=== PATIENT | female | born 1960 | race American Indian/Alaskan Native ===

== ENCOUNTER 2017-01-12 23:54 | Emergency (ER) | payer BC ==
[2017-01-13 00:46] LABS: Hematocrit 34.9 % (30.3-42.9); Hemoglobin 11.1 gm/dl (10.1-14.3); Mean Corpuscular HGB Conc 32 % (30-34); Mean Corpuscular Volume 77 fl (79-97); Platelet Count 250 K/mm3 (140-440); Red Blood Count 4.53 M/mm3 (3.65-5.03); Red Cell Distribution Width 15.9 % (13.2-15.2)
[2017-01-13 00:52] LABS: Mean Corpuscular Hemoglobin 25 pg (28-32)
[2017-01-13 01:02] LABS: Anion Gap 16 mmol/L; BUN/Creatinine Ratio 28.57; Blood Urea Nitrogen 20 mg/dL (7-17); Calcium 9.6 mg/dL (8.4-10.2); Carbon Dioxide 30 mmol/L (22-30); Glucose 85 mg/dL (65-100); Sodium 143 mmol/L (137-145)
[2017-01-13 01:46] LABS: Basophils % (Manual) 0 % (0.0-1.8); Blastocytes % (Manual) 0 %
[2017-01-13 01:47] LABS: Anisocytosis 1+; Hypochromasia 1+; Stomatocytes Rare
[2017-01-13 01:49] LABS: Diff Status Complete; Platelet Estimate Consistent w Auto
[2017-01-13 03:08] LABS: Bacteria,Urine 1+ /HPF (Negative); Bilirubin,Urine NEG (Negative); Blood,Urine NEG (Negative); Ketones,Urine NEG (Negative); Leukocyte Esterase,Urine NEG (Negative); Mucus,Urine FEW /HPF; Nitrite,Urine NEG (Negative); Protein,Urine <15 mg/dL mg/dL (Negative); Urobilinogen,Urine < 2.0 mg/dL (<2.0)
--- NOTE | 2017-01-13 05:42 | Emergency Department Report ---
<MARINA WIGGINS - Last Filed: 01/13/17 07:07> - General Chief Complaint: Upper Respiratory Infection Stated Complaint: CHEST PAIN/LEG/BACK PAIN/COLD SX Time Seen by Provider: 01/13/17 05:37 Source: patient Mode of arrival: Ambulatory Limitations: No Limitations - History of Present Illness Initial Comments: 56-year-old -[place] female comes in for complaint of cough fever chest feels tight and congested with cough only. She also complains of right lower back pain that radiates down the leg times greater than a year. She reports she vomited last night no diarrhea no fever. He reports that she's been seen by her primary care provider for her right lower leg but has nothing been done. Patient requests a hip x-ray. MD Complaint: cough, rhinorrhea -: year(s) - Related Data Previous Rx's Medication Instructions Recorded Last Taken Type Benazepril/Hydrochlorothiazide 20 mg PO DAILY #30 tablet 06/10/15 01/14/16 Rx [Benazepril-Hctz 20-25 mg] 20 Gabapentin [Neurontin] 600 mg PO Q12HR capsule 06/10/15 01/14/16 Rx 600 Gabapentin [Neurontin] 600 mg PO Q12HR capsule 07/25/16 Unknown Rx Pantoprazole [Protonix TAB] 40 mg PO QDAY #30 tablet 07/25/16 Unknown Rx Sulfamethoxazole/Trimethoprim 1 each PO Q12HR #10 tablet 07/25/16 Unknown Rx [Bactrim DS TAB] traMADol [Ultram 50 MG tab] 50 mg PO Q6HR PRN #60 tablet 07/25/16 Unknown Rx Azithromycin [Zithromax TAB] 500 mg PO QDAY #5 tablet 01/13/17 Unknown Rx Cyclobenzaprine [Flexeril] 10 mg PO BID PRN #20 tablet 01/13/17 Unknown Rx predniSONE [Deltasone] 60 mg PO QDAY #15 tab 01/13/17 Unknown Rx traMADol [Ultram 50 MG tab] 50 mg PO Q4HR PRN #30 tablet 01/13/17 Unknown Rx Allergies Allergy/AdvReac Type Severity Reaction Status Date / Time amoxicillin trihydrate Allergy Shortness Verified 07/06/14 21:09 [From Amoxil] of Breath lisinopril Allergy Shortness Verified 07/06/14 21:09 of Breath naproxen Allergy Shortness Verified 07/06/14 21:09 of Breath ED Review of Systems ROS: Stated complaint: CHEST PAIN/LEG/BACK PAIN/COLD SX Other details as noted in HPI Constitutional: denies: chills, fever ENT: congestion Respiratory: cough Cardiovascular: chest pain (cough) Endocrine: no symptoms reported Gastrointestinal: denies: abdominal pain, nausea, diarrhea Genitourinary: denies: urgency, dysuria, discharge Musculoskeletal: denies: back pain, joint swelling, arthralgia Skin: denies: rash, lesions ED Past Medical Hx - Past Medical History Previous Medical History?: Yes Hx Hypertension: Yes Hx Heart Attack/AMI: No Hx Congestive Heart Failure: No Hx Diabetes: No Hx Liver Disease: Yes (cysts (2015)) Hx Renal Disease: No Hx Sickle Cell Disease: No Hx Arthritis: Yes Hx Seizures: No Hx Asthma: No Hx COPD: No Hx HIV: No Additional medical history: Cyst near heart, arthritis - Surgical History Past Surgical History?: Yes Additional Surgical History: Hysterectomy - Social History Smoking Status: Never Smoker Substance Use Type: Alcohol - Medications Home Medications: Home Medications Medication Instructions Recorded Confirmed Last Taken Type Benazepril/Hydrochlorothiazide 20 mg PO DAILY #30 tablet 06/10/15 07/22/1601/13 Rx [Benazepril-Hctz 20-25 mg] 20 Gabapentin [Neurontin] 600 mg PO Q12HR capsule 06/10/15 07/22/16 01/14/16 Rx 600 Gabapentin [Neurontin] 600 mg PO Q12HR capsule 07/25/16 Unknown Rx Pantoprazole [Protonix TAB] 40 mg PO QDAY #30 tablet 07/25/16 Unknown Rx Sulfamethoxazole/Trimethoprim 1 each PO Q12HR #10 tablet 07/25/16 Unknown Rx [Bactrim DS TAB] traMADol [Ultram 50 MG tab] 50 mg PO Q6HR PRN #60 tablet 07/25/16 Unknown Rx Azithromycin [Zithromax TAB] 500 mg PO QDAY #5 tablet 01/13/17 Unknown Rx Cyclobenzaprine [Flexeril] 10 mg PO BID PRN #20 tablet 01/13/17 Unknown Rx predniSONE [Deltasone] 60 mg PO QDAY #15 tab 01/13/17 Unknown Rx traMADol [Ultram 50 MG tab] 50 mg PO Q4HR PRN #30 tablet 01/13/17 Unknown Rx ED Physical Exam - General Limitations: No Limitations General appearance: alert, in no apparent distress - Head Head exam: Present: atraumatic, normocephalic - Eye Eye exam: Present: normal appearance - ENT ENT exam: Present: mucous membranes moist - Neck Neck exam: Present: normal inspection - Respiratory Respiratory exam: Present: normal lung sounds bilaterally. Absent: respiratory distress - Cardiovascular Cardiovascular Exam: Present: regular rate, normal rhythm. Absent: systolic murmur, diastolic murmur, rubs, gallop - GI/Abdominal GI/Abdominal exam: Present: soft, normal bowel sounds - Expanded Lower Extremity Exam Right Hip exam: Present: normal inspection, full ROM ( pain), tenderness Upper Leg exam: Present: normal inspection, full ROM Lower Leg exam: Present: normal inspection Ankle exam: Present: normal inspection Foot/Toe exam: Present: normal inspection - Back Exam Back exam: Present: normal inspection - Neurological Exam Neurological exam: Present: alert, oriented X3 - Psychiatric Psychiatric exam: Present: normal affect, normal mood ED Course Vital Signs 01/13/17 00:13 Temperature 98.3 F Pulse Rate 92 H Respiratory 20 Rate Blood Pressure 105/69 O2 Sat by Pulse 100 Oximetry ED Medical Decision Making - Lab Data Result diagrams: 01/13/17 00:28 01/13/17 00:28 - Medical Decision Making Patient's been evaluated by this provider fast track. Chest x-ray was ordered prior to examination. [place] was given for pain and discomfort. X-ray of the hip has been ordered pending reading. ERIC Sink will eval and discharge. Critical care attestation.: If time is entered above; I have spent that time in minutes in the direct care of this critically ill patient, excluding procedure time. ED Disposition Clinical Impression: Right-sided low back pain with sciatica, Bronchitis Disposition: DISCHARGED TO HOME OR SELFCARE Condition: Good Instructions: Acute Bronchitis (ED), Sciatica (ED), Lumbar Radiculopathy (ED) Prescriptions: Azithromycin [Zithromax TAB] 500 mg PO QDAY #5 tablet Cyclobenzaprine [Flexeril] 10 mg PO BID PRN #20 tablet PRN Reason: Muscle Spasm predniSONE [Deltasone] 60 mg PO QDAY #15 tab traMADol [Ultram 50 MG tab] 50 mg PO Q4HR PRN #30 tablet PRN Reason: Pain Referrals: PRIMARY CARE, [Primary Care Provider] - 3-5 Days <YESSENIA CAT - Last Filed: 01/13/17 07:39> ED Medical Decision Making - Lab Data Result diagrams: 01/13/17 00:28 01/13/17 00:28 - Radiology Data Radiology results: image reviewed interpreted by me: X-ray interpretation of hips reveals mild arthritic changes bilaterally. No acute pathology noted. - Medical Decision Making Taking over care from nurse practitioner Ilene. I reviewed x-ray results with patient and family in room. I advised patient that there is no acute pathology noted. I will start patient on short course of steroids, muscle relaxants, pain medication as well as antibiotics for upper respiratory infections. Patient is stable for discharge in and is agreement with treatment plan. I also gave patient referral to orthopedic for evaluation of back pain and leg radiculopathy for the past 4 months. ED Disposition Is pt being admited?: No Does the pt Need Aspirin: No Time of Disposition: 07:39
--- NOTE | 2017-01-13 07:21 | XRay Report ---
CHEST 2 VIEWS INDICATION: Chest tightness. COMPARISON: 01/14/2016 FINDINGS: PA and lateral chest radiographs demonstrate stable cardiomediastinal silhouette, clear lungs and multilevel thoracic spondylosis. CONCLUSION: No acute disease, stable. Thank you for the opportunity to participate in this patient's care.
[2017-01-13] MEDS ORDERED: NORCO 5/325 PO ONE (07:58)
[2017-01-13 08:12] VITALS: BP 132/77
--- NOTE | 2017-01-13 08:15 | XRay Report ---
RIGHT HIP TWO VIEWS: 01/12/17 23:54:00 CLINICAL: Right hip pain. FINDINGS: No fracture or dislocation.Mild osteoarthritis. The pelvic bones are intact. Mild osteoarthritis of the left hip. Phleboliths in pelvis. Normal soft tissues. IMPRESSION: Mild osteoarthritis.
== END 2017-01-13 08:11 | disposition home or self-care (01) ==
LOC: ED 23:54
DX: J40 Bronchitis, not specified as acute or chronic (principal); M54.41 Lumbago with sciatica, right side; I10 Essential (primary) hypertension
CPT/HCPCS: 36415; 71020; 80048; 81001; 85007; 85025; 93005; 93010; 99284

== ENCOUNTER 2020-12-03 16:43 | Emergency (ER) | payer SELFPAY ==
[2020-12-03 17:35] LABS: Basophils % (Auto) 0.3 % (0.0-1.8); Eosinophils # (Auto) 0.1 K/mm3 (0.0-0.4); Eosinophils % (Auto) 1.4 % (0.0-4.3); Hematocrit 34.7 % (30.3-42.9); Hemoglobin 11.4 gm/dl (10.1-14.3); Lymphocytes # (Auto) 3.4 K/mm3 (1.2-5.4); Lymphocytes % (Auto) 47.4 % (13.4-35.0); Mean Corpuscular HGB Conc 33 % (30-34); Mean Corpuscular Volume 78 fl (79-97); Monocytes # (Auto) 0.5 K/mm3 (0.0-0.8); Monocytes % (Auto) 7.4 % (0.0-7.3); Platelet Count 178 K/mm3 (140-440); Red Blood Count 4.46 M/mm3 (3.65-5.03)
[2020-12-03 18:05] LABS: Alanine Aminotransferase 9 units/L (7-56); BUN/Creatinine Ratio 18; Blood Urea Nitrogen 14 mg/dL (7-17); Calcium 8.8 mg/dL (8.4-10.2); Hemolysis Index 10
[2020-12-03 19:02] LABS: Bilirubin,Urine NEG (Negative); Blood,Urine NEG (Negative); Color,Urine Yellow (Yellow); Mucus,Urine 2+ /HPF; Protein,Urine <15 mg/dL mg/dL (Negative); Urobilinogen,Urine < 2.0 mg/dL (<2.0)
--- NOTE | 2020-12-03 19:04 | Emergency Department Report ---
Blank Doc - Documentation Documentation: This is a 60-year-old female with upper abdominal pain and nausea vomiting with flank pain and dysuria with urinary frequency. 1- This initial assessment/diagnostic orders/clinical plan/ treatment(s) is/are subject to change based on pt's health status, clinical progression and re- assessment by fellow clinical providers in the ED. Further treatment and workup at subsequent clinical provers discretion. Patient/guardians urged not to elope from ED as their condition may be serious if not clinically assessed and managed. 2-labs 3-UA
== END 2020-12-03 21:25 | disposition left against medical advice (07) ==
LOC: ED 16:43
DX: R10.10 Upper abdominal pain, unspecified (principal); R11.2 Nausea with vomiting, unspecified; Z53.21 Procedure and treatment not carried out due to patient leaving prior to being seen by health care provider
CPT/HCPCS: 36415; 80053; 81001; 83690; 85025